=== PATIENT | male | born 1955 | race Caucasian/White ===

== ENCOUNTER → 2017-03-30 | Outpatient (CLI) | payer OTHER ==
--- NOTE | 2017-03-30 11:28 | XR ---
EXAMINATION TYPE: XR lumbar spine 2 or 3V DATE OF EXAM: 03/30/2017 CLINICAL HISTORY: Back surgery progress study. TECHNIQUE: Frontal and lateral images of the lumbar spine are obtained. COMPARISON: Lumbar spine x-ray May 01, 2016 FINDINGS: There are 5 lumbar type vertebral bodies identified. The lumbar spine redemonstrate subtl e stable grade 1 retrolisthesis of L2 on L3 Without evidence of acute fracture or dislocation. There is redemonstration of posterior interpedicular screws bilaterally at L4-S1 levels. Vertebral body hei ghts and disc space heights are maintained with exception of persistent moderate to severe disc space narrowing with mild spurring L5-S1 level. Some vascular calcification of overlying distal abdominal aorta and iliac branch vessels is redemonstrated. IMPRESSION: Stable and satisfactory alignment after lower lumbar surgery.
== END | disposition home or self-care (01) ==
LOC: RADXRMAIN 10:47
PROVIDERS: ATTEND Orthopaedic Surgery Orthopaedic Surgery of the Spine
DX: Z47.89 Encounter for other orthopedic aftercare (principal); Z98.1 Arthrodesis status
CPT/HCPCS: 72100

== ENCOUNTER → 2017-12-13 | Outpatient (CLI) | payer OTHER ==
--- NOTE | 2017-12-13 18:25 | CT ---
EXAMINATION TYPE: CT brain wo con DATE OF EXAM: 12/13/2017 COMPARISON: NONE HISTORY: BO x3 months CT DLP: 1118 mGycm Automated exposure control for dose reduction was used. FINDINGS: Ventricles and sulci appear normal. There is no mass effect nor midline shift. There is no sign of in tracranial hemorrhage. The calvarium is intact. IMPRESSION: NORMAL CT SCAN OF THE BRAIN.
== END | disposition home or self-care (01) ==
LOC: RADCTMAIN 17:57
PROVIDERS: ATTEND Internal Medicine
DX: R51 Headache (principal)
CPT/HCPCS: 70450

== ENCOUNTER → 2018-09-10 | Outpatient (CLI) | payer OTHER ==
--- NOTE | 2018-09-10 15:57 | MR ---
EXAMINATION TYPE: MR knee LT wo con DATE OF EXAM: 09/10/2018 COMPARISON: None HISTORY: Left knee pain TECHNIQUE: Multiplanar, multisequence imaging of the left knee is performed without IV contrast. FINDINGS: MEDIAL MENISCUS: Medial meniscus appears small. There is some minimal increased signal within the pos terior horn medial meniscus compatible some degenerative change. There is narrowing of the medial com partment joint space. LATERAL MENISCUS: Anterior and posterior horns are intact without tear. CRUCIATE LIGAMENTS: The anterior and posterior cruciate ligaments are intact and unremarkable. COLLATERAL LIGAMENTS: The medial collateral ligament and lateral collateral ligament complex are inta ct and unremarkable. EXTENSOR MECHANISM: Visualized quadriceps and patellar tendons are intact. EFFUSION: Small joint effusion is present. POPLITEAL CYST: No popliteal/smith cyst. TRICOMPARTMENT SPACES: There is narrowing of the medial compartment joint space. CARTILAGE: Articular cartilage appears preserved. BONE MARROW SIGNAL: No focal abnormal marrow signal is appreciated. OTHER: No additional significant abnormality is appreciated. IMPRESSION: 1. Degenerative changes with loss of medial meniscus. Some internal derangement of the posterior horn may be present. 2. Mild osteoarthritic degenerative change medial compartment left knee. 3. Small joint effusion
--- NOTE | 2018-09-10 16:01 | MR ---
EXAMINATION TYPE: MR knee RT wo con DATE OF EXAM: 09/10/2018 COMPARISON: None HISTORY: Right knee pain TECHNIQUE: Multiplanar, multisequence imaging of the right knee is performed without IV contrast. FINDINGS: MEDIAL MENISCUS: There is increased signal on an oblique angle within the posterior horn medial menis cus. This has some communication with the inferior articular surface. Oblique tear and/or internal de rangement posterior horn medial meniscus is present. LATERAL MENISCUS: Anterior and posterior horns are intact without tear. CRUCIATE LIGAMENTS: The anterior and posterior cruciate ligaments are intact and unremarkable. COLLATERAL LIGAMENTS: The medial collateral ligament and lateral collateral ligament complex are inta ct and unremarkable. EXTENSOR MECHANISM: Visualized quadriceps and patellar tendons are intact. EFFUSION: No significant suprapatellar joint effusion. POPLITEAL CYST: No popliteal/smith cyst. TRICOMPARTMENT SPACES: There is narrowing of the medial lateral compartment joint spaces. CARTILAGE: There is diffuse thinning of the articular cartilage to the medial and lateral compartment joint spaces. Patellofemoral joint space appears preserved. BONE MARROW SIGNAL: No focal abnormal marrow signal is appreciated. OTHER: No additional significant abnormality is appreciated. IMPRESSION: 1. Oblique tear posterior horn medial meniscus. 2. Mild to moderate thinning of the articular cartilage in the medial lateral compartments compatible with osteoarthritic degenerative change.
== END ==
LOC: RADMRIMAIN 07:05
PROVIDERS: ATTEND Orthopaedic Surgery
DX: S83.241A Other tear of medial meniscus, current injury, right knee, initial encounter (principal); M17.12 Unilateral primary osteoarthritis, left knee

== ENCOUNTER → 2018-10-16 | Outpatient (CLI) | payer OTHER ==
[~2018-10-16] MED LIST: REGADENOSON 0.4 MG/5 ML SYRINGE IV ONE
--- NOTE | 2018-10-16 11:45 | NM ---
EXAMINATION TYPE: NM stress lexiscan cardiolite DATE OF EXAM: 10/16/2018 COMPARISON: NONE HISTORY: Chest pain and abnormal EKG TECHNIQUE: After the intravenous administration of 10.32 mCi Tc 99m Sestamibi - Cardiolite resting S PECT images acquired 45 minutes post injection. The patient received 0.4mg Lexiscan, 26.8 mCi Tc 99m Sestamibi - Stress images obtained [address] injection FINDINGS: Small fixed defect may be at the cardiac apex. A defect on the resting images appears larger. The eje ction fraction of 54% is normal. There is some dyskinesia of the inferior wall near the apex IMPRESSION: 1. Small fixed defect at the cardiac apex. 2. Stress-induced ischemic change is not evident. 3. Some dyskinesia of the inferior wall near the cardiac apex.
--- NOTE | 2018-10-17 11:42 | EST ---
EXERCISE STRESS AGE: 63 SEX: M HT: 5'10" WT: 142 PROTOCOL: Lexinscan Cardiolite Stress Test HEART RATE REST: 60 BLOOD PRESSURE REST: 103/66 MAXIMUM HEART RATE ACHIEVED: 92 MAXIMUM BLOOD PRESSURE: 115/72 85% MPHR: 135 100% MPHR: 159 INDICATIONS: Abnormal EKG, Chest pain. CLINICAL INFORMATION: Baseline heart rate 60 beats per minute. Baseline blood pressure 103/66 mmHg. Baseline 12-lead ECG shows normal sinus rhythm with J-point elevation with a 0.[address] elevation. The patient received Lexiscan infusion per protocol. No significant change in heart rate or blood pressure. ECG did not show any clear-cut evidence for ischemia. Nuclear portion will be reported separately. No arrhythmias. MMODL / IJN: [id number] /
== END | disposition home or self-care (01) ==
LOC: RADNMMAIN 07:55
PROVIDERS: ATTEND Internal Medicine
DX: G24.9 Dystonia, unspecified (principal); I51.89 Other ill-defined heart diseases; R94.31 Abnormal electrocardiogram [ECG] [EKG]; R07.9 Chest pain, unspecified
CPT/HCPCS: 93017; 78452; A9500; J2785